=== PATIENT | female | born 1960 | race Caucasian/White ===

== ENCOUNTER 2021-03-18 16:05 | Inpatient (IN) | payer BC ==
[~2021-03-18] VITALS: Ht 152.4 cm; Wt 64.0 kg
[2021-04-01] VITALS (11 sets, daily range): BP systolic 111–147; BP diastolic 59–89; PULSE 74–99; TEMP 97.4–98.7
[2021-04-01] MEDS ORDERED: DYAZIDE 25 MG-31 CAP PO (06:40)
[2021-04-01] MEDS ORDERED: CELEBREX 200MG200 MG PO (06:40)
[2021-04-01] MEDS ORDERED: OCUVITE1 TA1 PO (06:41)
--- NOTE | 2021-04-01 06:53 | NUR ---
Patient taken per cart to PACU to have block placed prior to surgery. Belongings all taken to PACU.
[2021-04-01] MEDS ORDERED: NORCO 325 MG-51 TAB PO (09:33)
--- NOTE | 2021-04-01 14:00 | NUR ---
Pt doing well since arriving to the floor from PACU. She is alert and oriented with minimal pain complants. Incisions are all well approximated with no drainage or redness noted. Pt has been up to the bathroom and voided with no problems. She is also tolerating clear liquids with no complaints of feeling nauseated. Family present in the room
--- NOTE | 2021-04-01 19:02 | NUR ---
Pt continues to do well. She has been up walking in the halls. Minimal complaints of pain and is tolerating clear liquids. No needs verbalized, call light within reach
--- NOTE | 2021-04-01 20:05 | NUR ---
Pt. sitting up in bed at this time. Pt. is A&OX3, assessment complete. Int to lt. wrist patent. Abd. incsions well approximated. Pt. denies further needs.
[2021-04-02 00:10] VITALS: BP 103/57; PULSE 91; TEMP 98
[2021-04-02 04:12] VITALS: BP 103/49; PULSE 68; TEMP 97.8
[2021-04-02 06:47] LABS: BASO % 0.1 % (0.0-2.0); GRAN # 11.2 K/mm3 (1.4-6.5); GRAN % 83.2 % (42.2-75.2); LYMPH # 0.9 K/mm3 (1.2-3.4); LYMPH % 6.9 % (20.0-51.0); MEAN CELL VOLUME 87 fl (80.0-100.0); MEAN CORPUSCULAR HGB CONC 34 g/dl (33.0-37.0); MEAN PLATELET VOLUME 10.1 fl (7.4-10.4); MONO # 1.3 K/mm3 (0.1-0.6); MONO % 9.3 % (1.7-9.3); PLATELET COUNT 279 K/mm3 (130-400); RED BLOOD COUNT 3.33 M/mm3 (4.10-5.30); REDCELL DISTRIBUTION WIDTH-CV 14.2 % (11.5-14.5)
[2021-04-02 06:48] LABS: HEMOGLOBIN 9.8 g/dl (12.5-16.0); MEAN CORPUSCULAR HEMOGLOBIN 29 pg (27.0-31.0)
--- NOTE | 2021-04-02 07:00 | NUR ---
PT LAYING IN BED UPON BEDSIDE SHIFT REPORT. PT DENIES ANY PAIN, ASSESSMENT COMPLETED. NO CONCERNS.
[2021-04-02 07:03] LABS: CALCIUM 8.9 mg/dL (8.4-10.2); CREATININE, serum 1.61 mg/dL (0.57-1.11); POTASSIUM 3.4 mmol/L (3.5-4.5)
[2021-04-02 07:58] VITALS: BP 92/46; PULSE 74; TEMP 98.3
--- NOTE | 2021-04-02 08:00 | NUR ---
PCT CALLED TO INFORM THIS RN THAT PT'S BP WAS 92/46. PT DENIES ANY LIGHTHEADEDNESS OR DIZZINESS. WILL CONTINUE TO MONITOR.
--- NOTE | 2021-04-02 11:09 | NUR ---
Automated Access Systems Technician met with patient to discuss discharge planning. Patient lives in [place] with her , Carter (ph#[phone]) who is at bedside. Patient sees Dr. Segura for primary care and obtains medications from [facility] in [place]. Patient is independent with ADLS and has a home daycare. Patient does not use any DME and plans to return home upon discharge. Patient does not have Advance Directives and is not interested in completing DPOA-HC at this time. Discharge Plan: Home
[2021-04-02 11:22] VITALS: BP 103/51; PULSE 71; TEMP 97.9
[2021-04-02 16:00] VITALS: BP 118/54; PULSE 70; TEMP 98.6
== END 2021-04-02 18:58 | disposition home or self-care (01) | DRG 658 ==
LOC: SURG 04-01 05:23 → INPTSU 04-01 05:23 → SURG 04-01 07:30
PROVIDERS: ADMIT Urology
PROC: 8E0W4CZ Robotic Assisted Procedure of Trunk Region, Percutaneous Endoscopic Approach (ICD-10-PCS; 2021-04-01)
PROC: 0TT04ZZ Resection of Right Kidney, Percutaneous Endoscopic Approach (ICD-10-PCS; principal; 2021-04-01 07:30)
DX: C64.1 Malignant neoplasm of right kidney, except renal pelvis (principal); I10 Essential (primary) hypertension; R31.0 Gross hematuria; J45.909 Unspecified asthma, uncomplicated; D64.9 Anemia, unspecified; Z20.822 Contact with and (suspected) exposure to COVID-19; Z90.710 Acquired absence of both cervix and uterus
CPT/HCPCS: A4314; A9284; J0690; J1100; J1650; J2250; J2405; J2704; J2795; J3010; J7120